=== PATIENT | female | born 1985 | race Caucasian/White ===

== ENCOUNTER → 2017-09-03 | Outpatient (CLI) | payer BC ==
[~2017-09-03] MED LIST: ASPI81TA28 PO
[2017-09-03 16:41] LABS: HEMATOCRIT 42.1 % (37-47); MEAN CELL VOLUME 85.1 fL (80-100); MEAN CORPUSCULAR HEMOGLOBIN 28.5 pg (25-34); MEAN CORPUSCULAR HGB CONC 33.5 g/dl (32-36); MEAN PLATELET VOLUME 10.7 fL (7.4-10.4); PLATELET COUNT 242 K/uL (130-400); RED BLOOD COUNT 4.95 M/uL (4.2-5.4); WHITE BLOOD COUNT 9.16 K/uL (4.8-10.8)
== END | disposition home or self-care (01) ==
LOC: C.LAB1850 15:52
PROVIDERS: ATTEND Physician Assistant
DX: N92.0 Excessive and frequent menstruation with regular cycle (principal); R53.83 Other fatigue

== ENCOUNTER → 2017-09-10 | Outpatient (CLI) | payer BC ==
--- NOTE | 2017-09-10 13:43 | MAMMOGRAPHY REPORT ---
UNILATERAL LEFT DIGITAL DIAGNOSTIC MAMMOGRAM TOMOSYNTHESIS WITH CAD AND TARGETED LEFT ULTRASOUND: CLINICAL HISTORY: The patient reports left breast pain for over a year, which is predominantly in the left upper outer quadrant. She also reports an area of tissue difference in the left upper outer qu adrant which fluctuates in size and feels the largest in the 2 weeks after she ovulates. TECHNIQUE: Breast tomosynthesis in addition to standard 2D mammography was performed. Current study was also evaluated with a Computer Aided Detection (CAD) system. Left CC and MLO 2-D and tomosynthes is images were obtained. COMPARISON: No prior exams were available for comparison. BREAST COMPOSITION: The tissue of the left breast is heterogeneously dense, which may obscure small masses. FINDINGS: A triangle marker corcoran the site of the palpable finding and associated pain in the left up per outer quadrant. No suspicious masses, calcifications, or areas of architectural distortion are n oted in the left breast mammographically. Targeted ultrasound was performed of the area of the fluctuating palpable finding, in the left breast at approximately 1:00, 9 cm from the nipple. Ultrasound was also performed of a broader area in the left upper outer quadrant extending towards the axilla in the area of the cyclical pain described by the patient. The background parenchymal echotexture is heterogeneous which reduces the sensitivity of the exam. However, there are no suspicious masses or other suspicious sonographic abnormalities i n this region. IMPRESSION: ACR BI-RADS CATEGORY 2: BENIGN, TARGETED ULTRASOUND ACR BI-RADS CATEGORY 2: BENIGN No suspicious sonographic or mammographic abnormality at the site of the fluctuating palpable lump an d cyclical pain in the left breast. There is no mammographic or targeted sonographic evidence of mal ignancy. Recommend clinical follow-up. The patient has been verbally notified of the results. Approximately 10% of breast cancers are not detected with mammography. A negative mammographic report should not delay biopsy if a clinically suggestive mass is present. Nena Morris M.D. ah/:09/10/2017 11:55:54 [place] Operator: Yamileth SAEZ(Maryann)(M), [facility] letter sent: Normal 1/2 BI-RADS Code: ACR BI-RADS Category 2: Benign Ultrasound BI-RADS: ACR BI-RADS Category 2: Benign
== END | disposition home or self-care (01) ==
LOC: C.MAMM 10:36
PROVIDERS: ATTEND Physician Assistant
DX: N63.20 Unspecified lump in the left breast, unspecified quadrant (principal); N64.4 Mastodynia